=== PATIENT | male | born 1950 | race Caucasian/White ===

== ENCOUNTER → 2016-10-30 | Outpatient (CLI) | payer MEDICARE ==
[2016-10-30 07:13] LABS: CH 33.5; CHCM 35.5; HCT 46.6 % (39.0-53.0); HDW 2.88; MCH 32.6 pg (25.0-35.0); MCHC 34.3 g/dL (31.0-37.0); RBC 4.91 m/uL (4.30-5.90); RDW 13.4 % (11.5-15.5); WBC 5.7 k/uL (3.8-10.6)
[2016-10-30 10:44] LABS: ALT 59 U/L (21-72); AST 36 U/L (17-59); Alkaline Phosphatase 93 U/L (38-126); Anion Gap 7 mmol/L; Blood Urea Nitrogen 12 mg/dL (9-20); Calcium 9.8 mg/dL (8.4-10.2); Carbon Dioxide 28 mmol/L (22-30); Chloride 107 mmol/L (98-107); Cholesterol 182 mg/dL (<200); Glucose 99 mg/dL (74-99); HDL Cholesterol 72 mg/dL (40-60); Non-African American GFR(MDRD) >60 (>60 ml/min/1.73 sqM); Sodium 142 mmol/L (137-145); Total Bilirubin 0.7 mg/dL (0.2-1.3); Total Protein 7.5 g/dL (6.3-8.2); Triglycerides 75 mg/dL (<150)
[2016-10-30 11:11] LABS: Prostate Specific Antigen 0.14 ng/mL (0.00-4.00)
== END | disposition home or self-care (01) ==
LOC: LABWHC1 06:44
PROVIDERS: ATTEND Internal Medicine
DX: C61 Malignant neoplasm of prostate (principal); E78.5 Hyperlipidemia, unspecified; I10 Essential (primary) hypertension
CPT/HCPCS: 36415; 80053; 80061; 84153; 84443; 85027

== ENCOUNTER → 2017-10-30 | Outpatient (CLI) | payer MEDICARE ==
[2017-10-30 07:24] LABS: HCT 40.7 % (39.0-53.0); HGB 14.8 gm/dL (13.0-17.5); Hyperchromasia Slight; MCH 33.2 pg (25.0-35.0); MCHC 36.4 g/dL (31.0-37.0); MCV 91.2 fL (80.0-100.0); Mean Platelet Volume 7.5; Platelet Count 226 k/uL (150-450); RBC 4.46 m/uL (4.30-5.90); RDW 13.4 % (11.5-15.5); WBC 4.9 k/uL (3.8-10.6)
[2017-10-30 11:18] LABS: ALT 52 U/L (21-72); AST 33 U/L (17-59); Albumin 4.4 g/dL (3.5-5.0); Alkaline Phosphatase 93 U/L (38-126); Anion Gap 13 mmol/L; Blood Urea Nitrogen 15 mg/dL (9-20); Calcium 9.4 mg/dL (8.4-10.2); Carbon Dioxide 27 mmol/L (22-30); Chloride 104 mmol/L (98-107); Cholesterol 168 mg/dL (<200); Glucose 96 mg/dL (74-99); HDL Cholesterol 65 mg/dL (40-60); LDL Cholesterol,Calculated 92 mg/dL (0-99); Sodium 144 mmol/L (137-145); Total Bilirubin 0.5 mg/dL (0.2-1.3); Triglycerides 57 mg/dL (<150)
[2017-10-30 11:40] LABS: Prostate Specific Antigen 0.29 ng/mL (0.00-4.00)
== END | disposition home or self-care (01) ==
LOC: LABWHC1 06:53
PROVIDERS: ATTEND Internal Medicine
DX: C61 Malignant neoplasm of prostate (principal); I10 Essential (primary) hypertension; E78.5 Hyperlipidemia, unspecified
CPT/HCPCS: 36415; 80053; 80061; 84153; 84443; 85027

== ENCOUNTER → 2018-05-13 | Outpatient (CLI) | payer MEDICARE ==
[2018-05-13 09:10] LABS: HCT 43.5 % (39.0-53.0); HGB 14.8 gm/dL (13.0-17.5); Mean Platelet Volume 7.4; Platelet Count 249 k/uL (150-450); RBC 4.63 m/uL (4.30-5.90); RDW 13.3 % (11.5-15.5); WBC 5.7 k/uL (3.8-10.6)
[2018-05-13 18:12] LABS: Albumin 4.4 g/dL (3.80-4.90); Anion Gap 9.4 mmol/L (4.00-12.00); Carbon Dioxide 25.6 mmol/L (21.6-31.8); Globulin 2.2 g/dL (2.1-3.7); LDL Cholesterol,Calculated 100.4 mg/dL (0.0-131.0); Potassium 4.4 mmol/L (3.5-5.5); Total Bilirubin 0.5 mg/dL (0.3-1.2); Total Protein 6.6 g/dL (6.2-8.2); VLDL Calculation 12.6 mg/dL (5.00-40.00)
== END | disposition home or self-care (01) ==
LOC: LABWHC1 07:02
PROVIDERS: ATTEND Internal Medicine
DX: E78.5 Hyperlipidemia, unspecified (principal); C61 Malignant neoplasm of prostate; I10 Essential (primary) hypertension
CPT/HCPCS: 36415; 80053; 80061; 84153; 84443; 85027

== ENCOUNTER → 2018-11-11 | Outpatient (CLI) | payer MEDICARE ==
[2018-11-11 09:03] LABS: HCT 44.8 % (39.0-53.0); HGB 15.3 gm/dL (13.0-17.5); MCH 31.9 pg (25.0-35.0); MCHC 34.1 g/dL (31.0-37.0); MCV 93.8 fL (80.0-100.0); Mean Platelet Volume 7.3; Platelet Count 229 k/uL (150-450); RBC 4.78 m/uL (4.30-5.90); RDW 14.3 % (11.5-15.5); WBC 5.7 k/uL (3.8-10.6)
[2018-11-11 16:23] LABS: Albumin 4.5 g/dL (3.80-4.90); Albumin/Globulin Ratio 2.05 (1.60-3.17); Calcium 9.4 mg/dL (8.7-10.3); Globulin 2.2 g/dL (1.6-3.3); Potassium 4.2 mmol/L (3.5-5.5); Total Bilirubin 0.6 mg/dL (0.3-1.2); Total Protein 6.7 g/dL (6.2-8.2)
== END | disposition home or self-care (01) ==
LOC: LABWHC1 07:17
PROVIDERS: ATTEND Internal Medicine
DX: E78.5 Hyperlipidemia, unspecified (principal); I10 Essential (primary) hypertension; C61 Malignant neoplasm of prostate
CPT/HCPCS: 36415; 80053; 80061; 84153; 84443; 85027

== ENCOUNTER → 2019-02-17 | Outpatient (CLI) | payer MEDICARE | END | disposition home or self-care (01) | LOC: LABWHC1 07:23 | PROVIDERS: ATTEND Urology | DX: R97.21 Rising PSA following treatment for malignant neoplasm of prostate (principal) | CPT/HCPCS: 36415; 84153 ==

== ENCOUNTER → 2019-03-06 | Outpatient (CLI) | payer MEDICARE ==
[2019-03-06 08:36] LABS: African American GFR (CKD) >90 (>60 ml/min/1.73 sqM); Blood Urea Nitrogen 14 mg/dL (9-20)
--- NOTE | 2019-03-06 10:30 | CT ---
EXAMINATION TYPE: CT pelvis w con DATE OF EXAM: 03/06/2019 COMPARISON: 07/21/2010 HISTORY: Prostate Cancer CT DLP: 752 mGycm Automated exposure control for dose reduction was used. CONTRAST: Performed with IV Contrast, patient injected with 100 ml mL of Isovue 300. FINDINGS: Prostatectomy changes noted. Urinary bladder wall thickening persists although improved from prior st udy. Urinary bladder is distended with a measurement of 9.9 cm and caudal dimension of 17.6 cm. No pe lvic mass or adenopathy. Surgical clips noted. Fat-containing inguinal hernias. No pelvic masses seen . Small renal cysts identified. Visualized small bowel is of normal caliber. IMPRESSION: 1. PROSTATECTOMY CHANGES. 2. DISTENTION OF URINARY BLADDER. URINARY BLADDER WALL THICKENING PERSISTS ALTHOUGH HAS IMPROVED SINC E PRIOR STUDY.
--- NOTE | 2019-03-06 15:30 | NM ---
EXAMINATION TYPE: NM bone scan whole body DATE OF EXAM: 03/06/2019 COMPARISON: Nuclear medicine bone scan dated 07/25/2010 HISTORY: Prostate cancer. Delayed whole-body scanning was performed following the injection of 25.1 mCi Tc 99m MDP. Images acq uired 5 hours post injection. FINDINGS: There is redemonstration of punctate focus of radiotracer uptake within the posterior right 10th rib previously discussed as the 11th rib. This does appear to be localized to the 10th rib on b oth prior and current imaging. There is also some heterogenous uptake within the sternal body and man ubrium. No suspicious uptake in the lumbar spine in this patient with prostate carcinoma. Multifocal uptake within the sternoclavicular joints, glenohumeral joints, chromic clavicular joints, sacroiliac joints, knees, and feet as well as of the elbows are likely secondary to arthropathy. Some pubic sym physis uptake is also likely secondary to arthropathy. Arthropathy changes have advanced from the adam or. IMPRESSION: 1. Stable punctate focus of radiotracer uptake within the posterior right 10th rib in comparison to 2 011 and stable multifocal uptake in the sternal manubrium. Correlation with plain films is recommende d for both of these sites. 2. No new suspicious foci of radiotracer Accumulation, with particular attention to the lumbar spine in this patient with history of prostate carcinoma. 3. Degenerative changes of the axial and appendicular skeleton have advanced from the prior exam.
== END | disposition home or self-care (01) ==
LOC: RADCTMAIN 07:54
PROVIDERS: ATTEND Urology
DX: Z08 Encounter for follow-up examination after completed treatment for malignant neoplasm (principal); N32.89 Other specified disorders of bladder; Z85.46 Personal history of malignant neoplasm of prostate; Z90.79 Acquired absence of other genital organ(s)
CPT/HCPCS: 82565; 84520; 72193; 36415; 78306; A9503; Q9967

== ENCOUNTER → 2019-05-05 | Outpatient (CLI) | payer MEDICARE ==
[2019-05-05 07:06] LABS: HCT 40.6 % (39.0-53.0); HGB 13.9 gm/dL (13.0-17.5); MCH 31.9 pg (25.0-35.0); MCHC 34.3 g/dL (31.0-37.0); Mean Platelet Volume 6.2; Platelet Count 257 k/uL (150-450); RBC 4.37 m/uL (4.30-5.90); RDW 13.2 % (11.5-15.5); WBC 5.5 k/uL (3.8-10.6)
[2019-05-05 11:55] LABS: African American GFR (CKD) 104.9 (60.0-200.0); Albumin 4.5 g/dL (3.80-4.90); Albumin/Globulin Ratio 1.88 (1.60-3.17); Anion Gap 7.5 mmol/L (4.00-12.00); BUN/Creat Ratio 16.25 Ratio (12.00-20.00); Calcium 9.3 mg/dL (8.7-10.3); Carbon Dioxide 28.5 mmol/L (21.6-31.8); Chol/HDL Ratio 3.13; Globulin 2.4 g/dL (1.6-3.3); LDL Cholesterol,Calculated 112.8 mg/dL (0.0-131.0); Total Bilirubin 0.5 mg/dL (0.3-1.2); Total Protein 6.9 g/dL (6.2-8.2); VLDL Calculation 19.2 mg/dL (5.00-40.00)
== END | disposition home or self-care (01) ==
LOC: LABWHC1 06:44
PROVIDERS: ATTEND Internal Medicine
DX: I10 Essential (primary) hypertension (principal); E78.5 Hyperlipidemia, unspecified
CPT/HCPCS: 36415; 80053; 80061; 84443; 85027

== ENCOUNTER → 2019-05-12 | Outpatient (CLI) | payer MEDICARE | LOC: LABWHC1 07:02 | PROVIDERS: ATTEND Urology | DX: C61 Malignant neoplasm of prostate (principal); R97.21 Rising PSA following treatment for malignant neoplasm of prostate | CPT/HCPCS: 36415; 84153; 84403 ==

== ENCOUNTER → 2019-09-22 | Outpatient (CLI) | payer MEDICARE | END | disposition home or self-care (01) | LOC: LABWHC1 09:11 | PROVIDERS: ATTEND Urology | DX: C61 Malignant neoplasm of prostate (principal); R97.21 Rising PSA following treatment for malignant neoplasm of prostate | CPT/HCPCS: 36415; 84153; 84403 ==

== ENCOUNTER → 2019-11-13 | Outpatient (CLI) | payer MEDICARE ==
[2019-11-13 09:21] LABS: HGB 14.6 gm/dL (13.0-17.5); MCH 32.7 pg (25.0-35.0); MCHC 34.6 g/dL (31.0-37.0); MCV 94.3 fL (80.0-100.0); Mean Platelet Volume 7.4; Platelet Count 236 k/uL (150-450); RBC 4.45 m/uL (4.30-5.90); RDW 13.6 % (11.5-15.5); WBC 5.8 k/uL (3.8-10.6)
[2019-11-13 15:22] LABS: African American GFR (CKD) 104.9 (60.0-200.0); Albumin 4.6 g/dL (3.80-4.90); Albumin/Globulin Ratio 1.77 (1.60-3.17); Anion Gap 10.9 mmol/L (4.00-12.00); BUN/Creat Ratio 17.5 Ratio (12.00-20.00); Calcium 9.8 mg/dL (8.7-10.3); Carbon Dioxide 28.1 mmol/L (21.6-31.8); Chol/HDL Ratio 3.23; Globulin 2.6 g/dL (1.6-3.3); LDL Cholesterol,Calculated 111.4 mg/dL (0.0-131.0); Non-African American GFR(CKD) 90.5 (60.0-200.0); Potassium 4.2 mmol/L (3.5-5.5); Total Bilirubin 0.6 mg/dL (0.3-1.2); Total Protein 7.2 g/dL (6.2-8.2); VLDL Calculation 22.6 mg/dL (5.00-40.00)
== END | disposition home or self-care (01) ==
LOC: LABWHC1 08:14
PROVIDERS: ATTEND Internal Medicine
DX: I10 Essential (primary) hypertension (principal); E78.5 Hyperlipidemia, unspecified; C61 Malignant neoplasm of prostate
CPT/HCPCS: 36415; 80053; 80061; 84443; 85027

== ENCOUNTER → 2019-12-05 | Outpatient (CLI) | payer MEDICARE ==
[2019-12-05 08:10] LABS: African American GFR (CKD) >90 (>60 ml/min/1.73 sqM); Blood Urea Nitrogen 14 mg/dL (9-20); Non-African American GFR(CKD) >90 (>60 ml/min/1.73 sqM)
--- NOTE | 2019-12-05 10:17 | CT ---
EXAMINATION TYPE: CT abdomen pelvis w con DATE OF EXAM: 12/05/2019 COMPARISON: HISTORY: Panniculitis CT DLP: 2540 mGycm Automated exposure control for dose reduction was used. TECHNIQUE: Helical acquisition of images was performed from the lung bases through the pelvis. CONTRAST: Performed with Oral Contrast and with IV Contrast, patient injected with 100 ml mL of Isovue 300. FINDINGS: LUNG BASES: No significant abnormality is appreciated. LIVER/GB: Multiple hypoattenuated hepatic cysts the largest multiloculated measuring 5.6 cm. Some of these are too small to accurately characterize but are also favored to represent cysts. Small calculu s is seen within the gallbladder body versus less likely subcentimeter polyp. Moderate atheromatous c hanges of the abdominal aorta and its branches. PANCREAS: No significant abnormality is seen. SPLEEN: No significant abnormality is seen. ADRENALS: No significant abnormality is seen. KIDNEYS: There are multiple hypoattenuated renal lesions, the largest on the right are cystic and jamie ign measuring up to 1.4 cm. Of the is are subcentimeter and too small to accurately characterize. ADENOPATHY: No greater than 1 cm short axis lymph nodes seen in the abdomen or pelvis. No central me senteric fat stranding of mesenteric panniculitis. Some fat stranding is seen of the ventral abdomina l wall. No fluid collection to suggest abscess. OSSEOUS STRUCTURES: Sclerotic likely degenerative endplate change is seen of L5 and T11. No new susp icious osseous lesion identified. Degenerative endplate change of L5 is unchanged from 03/06/2019. BOWEL: Sigmoid diverticulosis without evidence of pericolonic fat stranding. No dilated large or sma ll bowel seen. OTHER: Prostate gland is surgically absent. There is circumferential thickening of the urinary bladde r measuring up to 7 mm. Urinary bladder is distended. The entirety of the ventral abdominal wall cent imeters given patient body habitus. IMPRESSION: 1. No mesenteric fat stranding or adenopathy to suggest mesenteric panniculitis in this patient with a history of panniculitis. Some inflammatory fat stranding is seen of the ventral central subcutaneou s tissues/pannus that is nonspecific. No abscess seen. 2. Likely degenerative endplate change of L5 and T11 with stability of L5 in comparison to prior pelv ic CT of 03/06/2019. In a patient with history of prostate cancer surveillance is recommended however. 3. Circumferential urinary bladder wall thickening again as discussed on 03/06/2019. 4. Multiple hepatic and renal cysts and other lesions that are too small to accurately characterize.
--- NOTE | 2019-12-05 10:38 | CT ---
EXAMINATION TYPE: CT neck chest w con DATE OF EXAM: 12/05/2019 9:57 AM COMPARISON: CT chest dated 07/18/2010 HISTORY: panniculitis, history of prostate cancer CT DLP: 2540 mGycm Automated exposure control for dose reduction was used. CONTRAST: CT scan of the neck is performed following with IV Contrast, patient injected with 100 ml mL of Isovu e 300. Axial images are obtained, coronal and sagittal reformatted images are reviewed. FINDINGS: Airway: Minimal tracheal secretions seen on image 16. There is leftward bowing of the right coracoid cartilage impressing on the soft tissues, possibly from prior trauma. 3 mm left thyroid nodule incide ntally seen, too small to characterize. Secretions are noted in the posterior nasopharynx. Calculi ar e seen within the tonsils incidentally. Parotid/submandibular glands: No gross abnormality seen. Carotid/Vascular Structures: Conventional three-vessel branch pattern of the aortic arch. Dominance o f the left vertebral artery. Mild atherosclerosis of the left carotid bulb and right cervical interna l carotid artery without hemodynamically significant stenosis. Osseous Structures: Mucosal retention cysts versus polyps in the maxillary sinuses measuring 1.7 cm b ilaterally. Mild diffuse osseous demineralization and mild degenerative change of the spine with post erior disc osteophyte complexes at C4-C5, C5-C6 and C6-C7. Multilevel intervertebral disc space narro wing, anterior osteophytes, and uncovertebral hypertrophy is seen. Evaluation of the spinal canal is limited on CT. Other: 6 mm focal pleural thickening is seen of the medial right lower lobe on series 11 image 38. Th is is stable from 2011 and benign. 2 mm left lower lobe pulmonary nodule on image 38. This is stable from 2011 and benign. No mediastinal adenopathy. Mild coronary calcifications. No cardiomegaly. IMPRESSION: Benign left basilar pulmonary nodule and right basilar pleural thickening stable back to 2011. No suspicious adenopathy in the head or neck. Mucosal retention cysts versus polyps of the max illary sinuses.
== END | disposition home or self-care (01) ==
LOC: RADCTMAIN 07:11
PROVIDERS: ATTEND Internal Medicine
DX: N28.1 Cyst of kidney, acquired (principal); Z85.46 Personal history of malignant neoplasm of prostate; R91.8 Other nonspecific abnormal finding of lung field; R10.9 Unspecified abdominal pain; M54.2 Cervicalgia
CPT/HCPCS: 82565; 84520; 70491; 71260; 74177; 36415; Q9967

== ENCOUNTER → 2020-04-01 | Outpatient (CLI) | payer MEDICARE ==
[2020-04-02 00:45] LABS: Prostate Specific Antigen <0.1 ng/mL (0.0-6.5)
== END | disposition home or self-care (01) ==
LOC: LABWHC1 09:22
PROVIDERS: ATTEND Urology
DX: C61 Malignant neoplasm of prostate (principal); R97.21 Rising PSA following treatment for malignant neoplasm of prostate
CPT/HCPCS: 36415; 84153; 84403

== ENCOUNTER → 2020-06-08 | Outpatient (CLI) | payer MEDICARE ==
[2020-06-08 08:53] LABS: HCT 41.1 % (39.0-53.0); HGB 14.8 gm/dL (13.0-17.5); MCH 33.7 pg (25.0-35.0); MCHC 36.1 g/dL (31.0-37.0); MCV 93.4 fL (80.0-100.0); Mean Platelet Volume 7.5; Platelet Count 229 k/uL (150-450); RDW 12.8 % (11.5-15.5); WBC 6.1 k/uL (3.8-10.6)
[2020-06-08 11:20] LABS: African American GFR (CKD) 99.2 (60.0-200.0); Albumin 4.7 g/dL (3.80-4.90); Albumin/Globulin Ratio 1.96 (1.60-3.17); Anion Gap 8.6 mmol/L (4.00-12.00); BUN/Creat Ratio 14.44 Ratio (12.00-20.00); Calcium 9.8 mg/dL (8.7-10.3); Carbon Dioxide 29.4 mmol/L (21.6-31.8); Chol/HDL Ratio 3.05; Globulin 2.4 g/dL (1.6-3.3); LDL Cholesterol,Calculated 105.6 mg/dL (0.0-131.0); Non-African American GFR(CKD) 85.6 (60.0-200.0); Total Bilirubin 0.5 mg/dL (0.3-1.2); Total Protein 7.1 g/dL (6.2-8.2); VLDL Calculation 21.4 mg/dL (5.00-40.00)
== END | disposition home or self-care (01) ==
LOC: LABWHC1 07:07
PROVIDERS: ATTEND Internal Medicine
DX: I10 Essential (primary) hypertension (principal); E78.5 Hyperlipidemia, unspecified
CPT/HCPCS: 36415; 80053; 80061; 84443; 85027

== ENCOUNTER → 2020-12-08 | Outpatient (CLI) | payer MEDICARE ==
[2020-12-08 12:10] LABS: HCT 35.7 % (39.6-50.0); HGB 12.4 g/dL (13.0-17.0); MCH 33.1 pg (27.0-32.0); MCHC 34.7 g/dL (32.0-37.0); MCV 95.2 fL (80.0-97.0); Mean Platelet Volume 9.1 fL (9.5-12.2); Platelet Count 214 X 10*3/uL (140-440); RBC 3.75 X 10*6/uL (4.40-5.60); WBC 4.69 X 10*3/uL (4.50-10.00)
[2020-12-08 14:25] LABS: African American GFR (CKD) 104.2 (60.0-200.0); Albumin 4.6 g/dL (3.80-4.90); Albumin/Globulin Ratio 1.77 (1.60-3.17); Anion Gap 9.9 mmol/L (4.00-12.00); Calcium 9.2 mg/dL (8.7-10.3); Carbon Dioxide 24.1 mmol/L (21.6-31.8); Chol/HDL Ratio 3.19; Globulin 2.6 g/dL (1.6-3.3); LDL Cholesterol,Calculated 107.2 mg/dL (0.0-131.0); Non-African American GFR(CKD) 89.9 (60.0-200.0); Potassium 3.8 mmol/L (3.5-5.5); Total Bilirubin 0.3 mg/dL (0.3-1.2); Total Protein 7.2 g/dL (6.2-8.2); VLDL Calculation 19.8 mg/dL (5.00-40.00)
== END | disposition home or self-care (01) ==
LOC: LABWHC1 06:55
PROVIDERS: ATTEND Internal Medicine
DX: E78.5 Hyperlipidemia, unspecified (principal); I10 Essential (primary) hypertension
CPT/HCPCS: 36415; 80053; 80061; 84443; 85027

== ENCOUNTER → 2022-04-17 | Outpatient (CLI) | payer MEDICARE ==
[2022-04-17 11:49] LABS: Prostate Specific Antigen <0.01 ng/mL (0.00-6.50)
== END | disposition home or self-care (01) ==
LOC: LABWHC1 07:12
PROVIDERS: ATTEND Urology
DX: C61 Malignant neoplasm of prostate (principal)
CPT/HCPCS: 36415; 84153; 84403

== ENCOUNTER → 2022-05-16 | Outpatient (CLI) | payer MEDICARE ==
--- NOTE | 2022-05-16 07:41 | BD ---
EXAMINATION TYPE: Axial Bone Density DATE OF EXAM: 05/16/2022 COMPARISON: FIRST DEXA AT [facility] CLINICAL HISTORY: 72 years year old Male. ICD-10 CODE: Z12.31 SCREENING MAMMO Height: 64IN Weight: 177LB FRAX RISK QUESTIONS: Secondary Osteoporosis: RISK FACTORS HISTORY OF: Active: YES MEDICATIONS: Additional Medications: BP MEDS, CHOLESTEROL MED, LUPRON Additional History: RADIATION FOR PROSTATE CANCER EXAM MEASUREMENTS: Bone mineral densitometry was performed using the [employer] System. Bone mineral density as measured about the Lumbar spine is: ----- L1-L4(G/cm2): 1.136 T Score Values are as follows: ----- L1: -1.5 ----- L2: -1.6 ----- L3: -0.1 ----- L4: 1.1 ----- L1-L4: -0.4 FIRST DEXA AT [facility] Bone mineral density about the R hip (g/cm2): 0.957 Bone mineral density about the L hip (g/cm2): 0.882 T Score values are as follows: -----R Neck: -1.7 -----L Neck: -1.9 -----R Total: -0.4 -----L Total: -1.0 FRAX%s: The graph provided illustrates a 8.7% chance for a major osteoporotic fx and a 2.9% chance fo r the hips probability for fx in 10 years time. IMPRESSION: Osteopenia (T Score between -2.5 and -1). There is slightly increased risk of fracture and the patient may be considered for treatment. Re-Screen 2-5 years. NOTE: T-SCORE=SD OF THE YOUNG ADULT MEAN.
== END | disposition home or self-care (01) ==
LOC: RADBDWWP 07:06
PROVIDERS: ATTEND Urology
DX: C61 Malignant neoplasm of prostate (principal); M85.89 Other specified disorders of bone density and structure, multiple sites
CPT/HCPCS: 77080

== ENCOUNTER → 2022-10-16 | Outpatient (CLI) | payer MEDICARE | END | disposition home or self-care (01) | LOC: LABWHC1 07:11 | PROVIDERS: ATTEND Urology | DX: C61 Malignant neoplasm of prostate (principal) | CPT/HCPCS: 36415; 84153; 84403 ==

== ENCOUNTER → 2024-04-28 | Outpatient (CLI) | payer MEDICARE ==
[2024-04-28 10:51] LABS: Testosterone <10.00 ng/dL (86.98-780.10)
[2024-04-28 11:26] LABS: Prostate Specific Antigen <0.01 ng/mL (0.000-6.500)
== END | disposition home or self-care (01) ==
LOC: LABWHC1 07:46
PROVIDERS: ATTEND Urology
DX: C61 Malignant neoplasm of prostate (principal)
CPT/HCPCS: 36415; 84153; 84403

== ENCOUNTER → 2024-11-03 | Outpatient (CLI) | payer MEDICARE ==
[2024-11-03 10:54] LABS: Prostate Specific Antigen <0.01 ng/mL (0.000-6.500)
== END | disposition home or self-care (01) ==
LOC: LABWHC1 07:22
PROVIDERS: ATTEND Urology
DX: C61 Malignant neoplasm of prostate (principal)
CPT/HCPCS: 36415; 84153; 84403

== ENCOUNTER → 2025-01-30 | Outpatient (CLI) | payer MEDICARE ==
[2025-01-30 11:30] LABS: African American GFR (CKD) >90 (>60 ml/min/1.73 sqM); Blood Urea Nitrogen 18 mg/dL (9-20); Non-African American GFR(CKD) >90 (>60 ml/min/1.73 sqM)
--- NOTE | 2025-01-30 15:24 | CT ---
EXAMINATION TYPE: CT ChestAbdPelvis w con DATE OF EXAM: 01/30/2025 COMPARISON: 12/05/2019 HISTORY: Enlarged lymph node up by right shoulder. Hx of prostate ca CT DLP: 1544.9 mGycm. Automated Exposure Control for Dose Reduction was Utilized. CONTRAST: CT scan of the thorax, abdomen and pelvis is performed with IV Contrast, patient injected with 100 ml mL of Isovue 300. FINDINGS: LUNGS: There is a subpleural 5 mm nodule right lower lobe. Additional 1 mm micronodule right upper lo be image 33 series 5. There are additional scattered bilateral left lower lobe micronodules most note d on image 34 and 35. Mild emphysematous changes. No pulmonary edema. No sizable pleural effusion or pneumothorax. MEDIASTINUM: No pathologic hilar or mediastinal lymphadenopathy. Aorta of normal caliber with mild at herosclerotic changes. Shotty subcentimeter benign-appearing short axis lymph nodes axilla bilaterall y.. HEART: Size within normal limits. Mild coronary artery calcifications present. OTHER: Carrol gynecomastia. LIVER/GB: Findings compatible with hepatic steatosis. Right lobe of the liver appears enlarged measur ing 18.6 cm. Multiple hypodense renal lesions some of which are too small to characterize. Larger les ions are consistent with simple cysts. Stability of other lesions argues for benign cyst.. PANCREAS: No significant abnormality is seen. SPLEEN: No significant abnormality is seen. ADRENALS: No significant abnormality is seen. KIDNEYS: No hydronephrosis or nephrolithiasis. Benign-appearing renal cyst. Additional too small to c haracterize lesions. Bladder is decompressed limiting evaluation. Correlate for prior prostatectomy.. BOWEL: No significant abnormality is seen. GENITAL ORGANS: No gross abnormality seen. LYMPH NODES: No greater than 1cm abdominal or pelvic lymph nodes are appreciated. OSSEOUS STRUCTURES: Osteopenia and degenerative changes. No destructive change is no large areas of b mariaa sclerosis chronic deformity of the right iliac bone. OTHER: Small fat-containing bilateral inguinal hernia. IMPRESSION: 1. No pathologic-sized lymphadenopathy in the axilla, chest, abdomen or pelvis. 2. Stable hepatomegaly and hepatic steatosis with suspected benign hepatic cysts. 3. Multiple 5 mm less pulmonary nodules too small to characterize but stable from exam of 2020% to be benign. Correlate with 12 month follow-up CT scan according to Fleischner Society guidelines as clin ically warranted. 4. The bladder is somewhat tortuous with mild wall thickening correlate for cystitis or chronic cysti tis. [facility], , 01/30/2025 3:22 PM
== END | disposition home or self-care (01) ==
LOC: RADCTMAIN 10:27
PROVIDERS: ATTEND Internal Medicine
DX: R59.0 Localized enlarged lymph nodes (principal); K76.0 Fatty (change of) liver, not elsewhere classified; R16.0 Hepatomegaly, not elsewhere classified; R91.8 Other nonspecific abnormal finding of lung field; Z85.46 Personal history of malignant neoplasm of prostate
CPT/HCPCS: 82565; 84520; 71260; 74177; 36415; Q9967